=== PATIENT | male | born 1995 | race Caucasian/White ===

== ENCOUNTER → 2016-03-12 | Outpatient (CLI) | payer BC ==
--- NOTE | 2016-03-12 09:58 | Diagnostic Imaging Report ---
INDICATION: SI joint pain AP and bilateral oblique views of the SI joints are obtained No fracture or acute bony abnormality is seen. There is no significant degenerative change. IMPRESSION: Negative SI joints. Dictated by: Dictated on workstation # [id number]
== END ==
LOC: RAD 09:19
PROVIDERS: ATTEND Family Medicine
DX: M53.3 Sacrococcygeal disorders, not elsewhere classified (principal); G89.29 Other chronic pain
CPT/HCPCS: 72202

== ENCOUNTER → 2016-04-16 | Outpatient (CLI) | payer BC ==
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
--- NOTE | 2016-04-16 16:23 | Diagnostic Imaging Report ---
CLINICAL INDICATION: Patient with low back and left leg pain x6 months. No known injury. EXAM: Axial CT scan of the lumbar spine performed without IV contrast. Sagittal and coronal reformatted images were created. COMPARISON: None. FINDINGS: There is a corticated pars defect involving the right side of the L5 pars interarticularis region. There is no significant listhesis at the L5-S1 level. There is a small Schmorl's node involving the left posterior, upper and lateral aspect of the L4 vertebral body with small far left lateral disc protrusion/herniation which is best seen on sagittal sequence series 19 through 25. There is a small Schmorl's node involving the left posterior upper aspect of the L5 vertebral body. There is a small disc bulge into the left L4-L5 region with mild neuroforaminal narrowing. Otherwise, there is no gross significant central spinal canal narrowing. The remainder of the lumbar spine is unremarkable. There are no significant degenerative changes seen. The intervertebral disc heights are within normal limits. There is no paraspinal soft tissue abnormality. IMPRESSION: 1: Corticated nondisplaced left L5 spondylolysis with no significant listhesis. 2: Schmorl's node with associated far left lateral disc herniation involving the left posterior, upper and lateral aspect of the L4 vertebral body. There is a small L4-L5 left foraminal disc bulge which causes mild neuroforaminal narrowing. 3: There is a small Schmorl's node involving the L5 vertebral body in the left posterior upper aspect. 4: The remainder of the lumbar spine is unremarkable. Dictated by: Dictated on workstation # [id number]
== END ==
LOC: RAD 14:58
PROVIDERS: ATTEND Orthopaedic Surgery Orthopaedic Surgery of the Spine
DX: M47.896 Other spondylosis, lumbar region (principal); M51.46 Schmorl's nodes, lumbar region
CPT/HCPCS: 72131

== ENCOUNTER → 2016-04-26 | Outpatient (CLI) | payer BC ==
--- OUTSIDE RECORDS SUMMARY | 2016-04-26 14:31 | XMS REPORT | Continuity of Care Document ---
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 Visit Date/Time Discharge Status Pt. Type Provider Facility Loc./Unit Complaint [id number] 01/27/2012 13:21:52 RECURRING
--- NOTE | 2016-04-29 09:40 | ECHOCARDIOGRAPHY REPORT ---
PROCEDURE PHYSICIAN: ABDIAZIZ SOSA DATE OF PROCEDURE: 04/26/2016 TWO DIMENSIONAL ECHOCARDIOGRAM REPORT PRIMARY PHYSICIAN: Dr. Thibodeaux OTHER PHYSICIAN: REFERRING PHYSICIAN: ORDERING PHYSICIAN: Dr. Thibodeaux INDICATION FOR THE PROCEDURE: Cardiac murmur. MEASUREMENTS DERIVED VALUES LV DIAMETER (LAX) NORMALS NORMALS Diastolic 5.2 (3.6-5.2) Eject. Fract. (60%+/-6%) Systolic (2.3-3.9) Diastolic Vol. % Shortening (0.22-0.42) Systolic Vol. Aortic Root 3.9 IVS THICKNESS Diastolic 1 (0.6-1.1) LVPW THICKNESS Diastolic 0.7 (0.6-1.1) LA DIAMETER Systolic 3.1 (2.1-3.7) DESCRIPTION: Two-dimensional echocardiography shows normal global left ventricular systolic function with normal regional wall motion. Aortic, mitral and tricuspid valve leaflets show good leaflet excursion. No significant pericardial effusion. Aortic valve appears to be trileaflet. There is no significant mitral valve prolapse. Doppler imaging does not indicate any significant valvular stenosis. There does not appear to be significant valvular regurgitation. Inferior vena cava does exhibit inspiratory collapse. There is no distinct evidence of significant intracardiac shunt on this transthoracic echocardiographic study. Pulmonary artery systolic pressure is estimated to be within normal limits. CONCLUSION: 1. Normal global left ventricular systolic function with an ejection fraction of approximately 60%. 2. No evidence of significant valvular regurgitation or stenosis. 3. Pulmonary artery systolic pressure is estimated to be within normal limits. Job ID: [id number] Dictated Date: 04/28/2016 11:42:27 Finance Business Partner Date: 04/29/2016 09:34:03 / trinity
== END ==
LOC: CARD 14:28
PROVIDERS: ATTEND Family Medicine
DX: R01.1 Cardiac murmur, unspecified (principal)
CPT/HCPCS: 93306

== ENCOUNTER → 2016-07-31 | Outpatient (CLI) | payer BC ==
[~2016-07-31] VITALS: Ht 175.3 cm; Wt 77.1 kg
[~2016-07-31] MED LIST: GADOBUTROL 7.5 MMOL/7.5 ML (GADAVIST) VIAL IV ONE; IOHEXOL 300 MG/ML 50 ML (OMNIPAQUE 300) VIAL IV ONE
[2016-07-31 12:58] VITALS: BP 118/72
[2016-07-31 13:19] VITALS: BP 120/78
--- NOTE | 2016-07-31 14:14 | Diagnostic Imaging Report ---
EXAMINATION: Fluoroscopic guided joint injection/arthrogram- left. INDICATION: Left shoulder pain, request for MR arthrogram of the shoulder is submitted. Fluoroscopy time: 21 seconds CONSENT: Informed consent was obtained from the patient. The risks, benefits, potential complications and alternatives were reviewed and all questions answered to the patient's satisfaction. PROCEDURE: After sterile preparation and draping, 1% lidocaine was utilized for local anesthesia. A 22 spinal needle is introduced into the glenohumeral joint under fluoroscopic guidance. After confirmation of proper positioning with intra-articular injection of, 10 ml of 1:150 concentration of Gadavist in normal saline is injected the into the joint. The patient tolerated the procedure well with no immediate complications. FINDINGS: Arthrogram demonstrates Normal distribution of contrast in the joint with no filling of the subacromial subdeltoid bursa seen. IMPRESSION: Successful fluoroscopic guided injection of diluted gadolinium into the left shoulder . MR arthrogram to follow. Dictated by: Dictated on workstation # [id number]
--- NOTE | 2016-07-31 14:35 | Diagnostic Imaging Report ---
PROCEDURE: MRI left joint upper extremity with intra-articular contrast. TECHNIQUE: Multiplanar, multisequence contrast-enhanced (intra-articular contrast) MRI of the left upper extremity was accomplished. INDICATION: Left shoulder pain. FINDINGS: There is contrast distention of the glenohumeral joint and axillary and subscapular recesses. The glenoid labrum appears intact. The biceps anchor appears intact. Contrast extends around the long head biceps tendon which is normal in signal, thickness, and location. The subscapularis tendon appears intact. There is mild increased intrasubstance signal along the distal infraspinatus tendon and the posterior fibers of the supraspinatus tendon suggestive of low-grade partial tear. No full-thickness or retracted tear. Minimal reactive fluid signal is seen in the subacromial subdeltoid bursa. The acromioclavicular joint appears normal. No os acromiale or Hill-Sachs deformity seen. The bone marrow appears unremarkable. The muscle bulk and signal around the shoulder appears normal. IMPRESSION: Suggestion of a low-grade intrasubstance partial tear involving the distal infraspinatus and supraspinatus tendons. Dictated by: Dictated on workstation # [id number]
== END ==
LOC: RAD 12:46
PROVIDERS: ATTEND Orthopaedic Surgery
DX: M75.102 Unspecified rotator cuff tear or rupture of left shoulder, not specified as traumatic (principal)
CPT/HCPCS: 23350; 73040; 73222

== ENCOUNTER 2016-09-06 14:58 | Outpatient (RCR) | payer BC | END 2016-09-25 11:04 | disposition home or self-care (01) | PROVIDERS: ATTEND Orthopaedic Surgery | DX: M25.512 Pain in left shoulder (principal) ==

== ENCOUNTER 2016-11-10 23:58 | Emergency (ER) | payer BC ==
[~2016-11-10] VITALS: Ht 175.3 cm; Wt 77.1 kg
[2016-11-11] MEDS ORDERED: RX-TRIMETH/SULFA. 160-800 MG (BACTRIM DS) TAB PPK#2 PO STA (00:24)
[2016-11-11] MEDS ORDERED: SULF1TAB35 PO (00:27)
[2016-11-11] MEDS ORDERED: PRD10T PO (00:27)
--- NOTE | 2016-11-11 00:27 | ED Integumentary General ---
General Chief Complaint: Bite-Animal/Human/Insect Stated Complaint: SPIDER BITE Nursing Triage Note: c/o bite to back Source: patient, family (PARENTS) History of Present Illness Time seen by provider: 00:15 Initial Comments PT THINKS HE MIGHT HAVE BEEN BITTEN/STUNG BY SOMETHING NOTICED AREA ON HIS BACK AN HOUR AGO--WAS NOT AWARE OF IT, SIMPLY NOTICED IT IN THE BATHROOM MIRROR DID NOT SEE OR FEEL ANYTHING BITE HIM DOES NOT ITCH OR HURT--COMPLETELY ASYMPTOMATIC NO DRAINAGE NO STREAKS LAID DOWN AND TOOK A NAP BEFORE WORK, WENT TO WORK AND HAD JUST GOTTEN HOME WHEN HE NOTICED IT. PCP: DR. IZAGUIRRE Allergies and Home Medications Allergies Coded Allergies: Penicillins (Unverified Allergy, Intermediate, FULL BODY RASH, 11/19/10) Home Medications Prednisone 10 Mg Tab, 40 MG PO DAILY, #12 Prescribed by: NATASHA MORRISON on 11/11/1626 Sulfamethoxazole/Trimethoprim 1 Each Tablet, 1 EACH PO BID, #20 Prescribed by: NATASHA MORRISON on 11/11/1626 Constitutional: no symptoms reported EENTM: no symptoms reported Respiratory: no symptoms reported Cardiovascular: no symptoms reported Gastrointestinal: no symptoms reported Genitourinary: no symptoms reported Musculoskeletal: no symptoms reported Skin: see HPI Psychiatric/Neurological: No Symptoms Reported Endocrine: No Symptoms Reported Hematologic/Lymphatic: No Symptoms Reported Past Lhreonn-Tckljr-Aicagx Hx Patient Social History Alcohol Use: Denies Use Recreational Drug Use: No Smoking Status: Never a Smoker Recent Foreign Travel: No Contact w/Someone Who Travel: No Recent Infectious Disease Expo: No Physical Abuse: No Sexual Abuse: No Immunizations Up To Date Tetanus Booster (TDap): Less than 5yrs PED Vaccines UTD: Yes Surgeries History of Surgeries: Yes Surgeries: Orthopedic Respiratory History of Respiratory Disorde: No Cardiovascular History of Cardiac Disorders: No Neurological History of Neurological Disord: No Genitourinary History of Genitourinary Disor: No Gastrointestinal History of Gastrointestinal Di: No Musculoskeletal History of Musculoskeletal Dis: No Endocrine History of Endocrine Disorders: No HEENT History of HEENT Disorders: No Cancer History of Cancer: No Psychosocial History of Psychiatric Problem: No Suicide Risk Score: 0 Integumentary History of Skin or Integumenta: No Blood Transfusions History of Blood Disorders: No Physical Exam Vital Signs Vital Sign - Last 12Hours 11/11/16 00:16 Temp 97.5 Pulse 71 Resp 18 B/P (MAP) 135/85 Pulse Ox 98 Capillary Refill : Less Than 3 Seconds General Appearance: WD/WN HEENT: normal ENT inspection Neck: normal inspection Cardiovascular: regular rate, rhythm, no murmur Respiratory: normal breath sounds Gastrointestinal: soft Back: no CVA tenderness, no vertebral tenderness, other (HAS APPROXIMATELY 3MM SCABBED CENTRAL AREA WITH 4 X 5 CM SURROUNDING ERYTHEMA. VERY SLIGHT SWELLING/ INDURATION. NO AREAS OF FLUCTUANCE, NO DRAINAGE. NO STREAKS. NON-TENDER. AREA IS JUST BELOW LEFT SCAPULA AND DOES HAVE APPEARANCE OF SOME TYPE OF INSECT BITE. 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, no motor/sensory deficits, alert, normal mood/affect, oriented x 3 Skin: normal color, warm/dry, other ( ABOVE) Progress/Results/Core Measures Results/Orders My Orders Orders - NATASHA MORRISON DO Rx-Trimeth/Sulfameth Ds Tab (Rx-Bactrim/ (11/11/16 00:24) Prednisone Tablet (Deltasone Tablet) (11/11/16 00:30) Vital Signs/I&O Vital Sign - Last 12Hours 11/11/16 11/11/16 00:16 00:36 Temp 97.5 Pulse 71 74 Resp 18 18 B/P (MAP) 135/85 Pulse Ox 98 98 Blood Pressure Mean: 102 Departure Impression Impression: Primary Impression: Insect bite Disposition: 01 HOME, SELF-CARE Condition: Stable Departure-Patient Inst. Referrals: CARINA IZAGUIRRE MD (PCP) Primary Care Physician Patient Instructions: Insect Bites and Stings (DC) Add. Discharge Instructions: BENADRYL 50 MG EVERY 4 HOURS NEEDED FOR ITCHING TYLENOL AND MOTRIN NEEDED FOR PAIN FOLLOW UP WITH DR. IZAGUIRRE IN 2 DAYS IF NO BETTER, OR RETURN TO ER IF SYMPTOMS WORSEN All discharge instructions reviewed with patient and/or family. Voiced understanding. Scripts Prednisone (Prednisone) 10 Mg Tab 40 MG PO DAILY, #12 TAB Prov: NATASHA MORRISON DO 11/11/16 Sulfamethoxazole/Trimethoprim (Bactrim Ds Tablet) 1 Each Tablet 1 EACH PO BID, #20 TAB Prov: NATASHA MORRISON DO 11/11/16 Images Torso/Trunk 1 - Other-See Progress Note NATASHA MORRISON DO Nov 11, 2016 00:27
[2016-11-11] MEDS ORDERED: predniSONE 20 MG TAB PO ONE (00:30)
[2016-11-11 00:36] VITALS: BP 135/85
== END 2016-11-11 00:36 | disposition home or self-care (01) ==
LOC: EDUNIT# 23:58 → ER 11-11
DX: S20.469A Insect bite (nonvenomous) of unspecified back wall of thorax, initial encounter (principal); W57.XXXA Bitten or stung by nonvenomous insect and other nonvenomous arthropods, initial encounter
CPT/HCPCS: 99283

== ENCOUNTER 2016-12-04 10:31 | Outpatient (RCR) | payer BC ==
[~2016-12-04 10:31] MED LIST changes: -GADOBUTROL 7.5 MMOL/7.5 ML (GADAVIST) VIAL IV ONE; -IOHEXOL 300 MG/ML 50 ML (OMNIPAQUE 300) VIAL IV ONE; +PRD10T PO; +SULF1TAB35 PO
== END 2016-12-07 | disposition home or self-care (01) ==
PROVIDERS: ATTEND Orthopaedic Surgery Orthopaedic Surgery of the Spine
DX: M51.26 Other intervertebral disc displacement, lumbar region (principal)

== ENCOUNTER 2016-12-11 10:08 | Outpatient (RCR) | payer BC | END 2016-12-20 09:45 | disposition home or self-care (01) | PROVIDERS: ATTEND Orthopaedic Surgery Orthopaedic Surgery of the Spine | DX: M51.26 Other intervertebral disc displacement, lumbar region (principal) ==

== ENCOUNTER → 2017-02-17 | Outpatient (CLI) | payer BC ==
--- NOTE | 2017-02-17 09:00 | Diagnostic Imaging Report ---
PROCEDURE: MRI lumbar spine. TECHNIQUE: Multiplanar, multisequence MRI of the lumbar spine was performed without contrast. INDICATION: Chronic low back pain. COMPARISON: CT lumbar spine from 04/16/2016. FINDINGS: The lumbar spine is normal in alignment. Specifically, there is no spondylolisthesis. Vertebral bodies are normal in stature and there is no compression fracture or marrow replacing process. Small Schmorl's nodes at L4 and L5. Superior endplates are unchanged. The chronic unilateral right-sided pars defect of L5 is again noted but better assessed on recent CT. Please note that the prior report erroneously reported this pars defect on the left. The conus terminates at appropriate level. No clumping of the intrathecal nerve roots. There is loss of normal T2 hyperintense signal at the L3-L4 and L4-L5 intervertebral discs. The posterior annular tear is present at L4-L5 within an associated disc protrusion, detailed in full below. Visualized paraspinal musculature is normal. T12-L1: Normal. L1-L2: Normal. L2-L3: Normal. L3-L4: Mild loss of normal T2 hyperintense signal as well as height loss of the disc space. No significant disc bulge or herniation. No spinal stenosis or foraminal narrowing. L4-L5: Loss of normal T2 hyperintense signal as well as mild interbody height loss. There is a left paracentral and foraminal disc protrusion which contacts the transversing left-sided L5 nerve roots within the lateral recess. The L4 nerve root passes superiorly to the disc protrusion and there is no mass effect upon the left L4 nerve root. No resultant spinal stenosis or foraminal narrowing. L5-S1: Normal. IMPRESSION: 1. Left central and paracentral disc protrusion at L4-L5 contacts the transversing L5 nerve roots within the left lateral recess. There is no mass effect on the L4 nerve root within the foramen or far lateral space. 2. Unilateral pars defect on the right at L5 is chronic in nature. Please note that this was erroneously reported as the left side on prior CT. Dictated by: Dictated on workstation # [id number]
== END ==
LOC: RAD 06:31
PROVIDERS: ATTEND Orthopaedic Surgery Orthopaedic Surgery of the Spine
DX: M51.26 Other intervertebral disc displacement, lumbar region (principal); M43.06 Spondylolysis, lumbar region
CPT/HCPCS: 72148

== ENCOUNTER 2017-04-18 13:00 | Outpatient (RCR) | payer BC | END 2017-06-10 10:48 | disposition home or self-care (01) | PROVIDERS: ATTEND Orthopaedic Surgery Orthopaedic Surgery of the Spine | DX: Z47.89 Encounter for other orthopedic aftercare (principal); M54.5 Low back pain ==

== ENCOUNTER → 2017-08-25 | Outpatient (CLI) | payer BC ==
--- NOTE | 2017-08-25 16:27 | Diagnostic Imaging Report ---
PROCEDURE: MRI lumbar spine. TECHNIQUE: Multiplanar, multisequence MRI of the lumbar spine was performed without contrast. INDICATION: Back pain. Comparison is made with prior examination from 02/17/17. FINDINGS: The alignment of lumbar spine is normal. The vertebral body heights are well maintained. There is a unilateral pars defect on the right at L5 without spondylolisthesis. There is no other fracture. There are no other marrow signal intensity abnormalities. Conus medullaris is seen at L1 and is normal in appearance. The T12-L1, L1-L2 and L2-L3 discs are all normal in height, signal intensity and morphology. At L3-L4, there is slight loss of disc height and signal intensity as well as facet disease and thickening of the ligamentum flavum. There is mild central spinal stenosis and minimal bilateral neuroforaminal encroachment. At L4-L5, there is a large left paracentral and lateral disc bulge/protrusion. This results in effacement of ventral thecal sac and marked encroachment upon the left lateral recess. There is moderate left neuroforaminal encroachment. There is no significant neuroforaminal encroachment on the right. L5-S1 disc is normal in appearance. The aorta is nonaneurysmal. The visualized kidneys are unremarkable. IMPRESSION: 1. Large left paracentral and lateral disc bulge/protrusion at L4-L5 resulting in effacement of ventral thecal sac and marked encroachment upon the left lateral recess with moderate left neuroforaminal encroachment. 2. Mild disc desiccation and facet disease at L3-L4 with mild central spinal stenosis and mild bilateral neuroforaminal encroachment. 3. Unilateral pars defect on the right at L5 without spondylolisthesis. 4. Otherwise unremarkable MRI of lumbar spine. Dictated by: Dictated on workstation # [id number]
--- NOTE | 2017-08-25 17:03 | Diagnostic Imaging Report ---
PROCEDURE: MR imaging cervical spine without contrast. TECHNIQUE: Multiplanar, multisequence MR imaging of the cervical spine was performed without contrast. INDICATION: Neck pain. FINDINGS: The alignment of the cervical spine is normal. The vertebral body heights are well-maintained. The prevertebral soft tissues are within normal limits. Posterior fossa is unremarkable. Visualized portions of the spinal cord are normal in signal intensity and morphology. Subarachnoid space is well maintained anterior to the cord. There is no focal disc extrusion or evidence of high-grade spinal stenosis. There is minimal central disc protrusion at C4-C5 which results in slight effacement of the ventral thecal sac. IMPRESSION: Minimal central disc protrusion at C4-C5 resulting in slight effacement of the ventral thecal sac. There is however no focal disc extrusion or high-grade spinal stenosis. Otherwise unremarkable MRI cervical spine. Dictated by: Dictated on workstation # [id number]
== END ==
LOC: RAD 15:13
PROVIDERS: ATTEND Physician Assistant
DX: M48.061 Spinal stenosis, lumbar region without neurogenic claudication (principal); M51.16 Intervertebral disc disorders with radiculopathy, lumbar region; M47.26 Other spondylosis with radiculopathy, lumbar region
CPT/HCPCS: 72141; 72148

== ENCOUNTER → 2017-10-23 | Outpatient (CLI) | payer BC ==
[~2017-10-23] MED LIST changes: +GADOBUTROL 10 MMOL/10 ML (GADAVIST) VIAL IV ONE
--- NOTE | 2017-10-23 16:44 | Diagnostic Imaging Report ---
CLINICAL INDICATION: Patient with back pain which has never really gone away. Patient also has some posterior left hip pain. EXAM: MRI of the lumbar spine performed without and with 8 cc of Gadovist IV contrast. Sagittal T2, sagittal T1, sagittal T2 fat-sat, axial T1, axial T2, axial T1 post IV contrast, and sagittal T1 fat-sat post IV contrast. COMPARISON: MRI of the lumbar spine without contrast dated 08/25/2017. FINDINGS: Again seen left L4-L5 laminotomy changes for L4-L5 discectomy. There is interval decreased size of the disc material in the left paracentral region. There is enhancement involving the posterior aspect of the resected disc representing scarring. There is only minimal disc bulge remaining. Diffuse disc bulge at the L4-L5 level is again seen. There is persistent moderate to severe left neuroforaminal narrowing and mild right neuroforaminal narrowing from small disc bulges. There is enhancement in the laminectomy region with minimal fluid collection seen in the subcutaneous soft tissue. Stable slight low T2 degenerative disc signal changes involving the L3-L4 disc. There is mild L3-L4 bilateral facet arthropathy and mild bilateral neuroforaminal narrowing. There is stable minimal impression upon the thecal sac anteriorly at the L3-L4 level. The remainder of the lumbar spine is stable with no other significant abnormality. IMPRESSION: 1: Again seen postop changes with interval evolution of discectomy changes at the L4-L5 level with resolution of the previous L4-L5 left paracentral disc herniation with mild diffuse disc bulge remaining at the L4-L5 level. There is scarring in the discectomy region. There is stable moderate to severe left neuroforaminal narrowing and mild right neuroforaminal narrowing. 2: The remainder of this exam shows no significant interval change compared to the prior study of comparison. Dictated by: Dictated on workstation # [id number]
== END ==
LOC: RAD 15:18
PROVIDERS: ATTEND Orthopaedic Surgery Orthopaedic Surgery of the Spine
DX: M51.26 Other intervertebral disc displacement, lumbar region (principal); M99.73 Connective tissue and disc stenosis of intervertebral foramina of lumbar region
CPT/HCPCS: 72158

== ENCOUNTER 2017-11-17 16:13 | Outpatient (RCR) | payer BC ==
[~2017-11-17 16:13] MED LIST changes: -GADOBUTROL 10 MMOL/10 ML (GADAVIST) VIAL IV ONE
== END 2017-11-20 12:32 | disposition home or self-care (01) ==
PROVIDERS: ATTEND Physician Assistant
DX: Z47.89 Encounter for other orthopedic aftercare (principal); M54.5 Low back pain

== ENCOUNTER 2017-12-01 16:11 | Outpatient (RCR) | payer BC | END 2017-12-07 | disposition home or self-care (01) | PROVIDERS: ATTEND Orthopaedic Surgery | DX: Z47.89 Encounter for other orthopedic aftercare (principal); M54.5 Low back pain ==

== ENCOUNTER 2017-12-23 15:52 | Outpatient (RCR) | payer BC | END 2017-12-23 16:20 | disposition home or self-care (01) | PROVIDERS: ATTEND Orthopaedic Surgery | DX: Z47.89 Encounter for other orthopedic aftercare (principal); M54.5 Low back pain ==

== ENCOUNTER → 2018-02-23 | Outpatient (CLI) | payer BC ==
--- NOTE | 2018-02-23 21:32 | Diagnostic Imaging Report ---
PROCEDURE: CT cervical spine without contrast. TECHNIQUE: Multiple contiguous axial images were obtained through the cervical spine without the use of intravenous contrast. Sagittal and coronal reformations were then performed. DATE: February 23, 2018. INDICATION: 22-year-old male, left-sided headache and neck pain radiating into the left upper back and shoulder area. COMPARISON: MRI cervical spine August 25, 2017. FINDINGS: CT is limited for assessment of disc pathology as well as additional non-bony causes of foraminal and spinal stenosis. The cervical disc heights are well-preserved. There are no prominent endplate degenerative related changes. There is no facet joint subluxation or dislocation. There are no facet degenerative changes. There is no prominent prevertebral soft tissue swelling. There is no identified acute fracture of the cervical spine. The visualized portions of the lung apices are grossly clear. IMPRESSION: 1. Unremarkable CT of the cervical spine. 2. CT is limited for assessment of disc pathology as well as additional non-bony causes of foraminal and spinal stenosis. Dictated by: Dictated on workstation # [id number]
== END ==
LOC: RAD 15:23
PROVIDERS: ATTEND Physician Assistant
DX: M54.12 Radiculopathy, cervical region (principal)
CPT/HCPCS: 72125